=== PATIENT | female | born 1990 | race Caucasian/White ===

== ENCOUNTER 2021-06-23 12:13 | Emergency (ER) | payer OTHER ==
[~2021-06-23] VITALS: Ht 160 cm; Wt 68.9 kg
[2021-06-23] MEDS ORDERED: HYDROXYCHLOROQ200 MG PO (12:23)
[2021-06-23] MEDS ORDERED: SYNTHROID112 MCG PO (12:23)
[2021-06-23] MEDS ORDERED: FOLIC ACID0.8 M1 (12:24)
== END 2021-06-23 15:59 | disposition home or self-care (01) ==
LOC: ER 12:13
DX: O21.0 Mild hyperemesis gravidarum (principal); Z3A.09 9 weeks gestation of pregnancy

== ENCOUNTER 2021-08-26 15:13 | Emergency (ER) | payer OTHER ==
[~2021-08-26] VITALS: Ht 160 cm; Wt 68.0 kg
[~2021-08-26 15:13] MED LIST: FOLIC ACID0.8 M1; HYDROXYCHLOROQ200 MG PO; SYNTHROID112 MCG PO
[2021-08-26] MEDS ORDERED: ZOFRAN8 MG PO (18:51)
[2021-08-26] MEDS ORDERED: CARAFATE1 GM PO (18:51)
[2021-08-26] MEDS ORDERED: PEPCID AC20 MG PO (18:51)
== END 2021-08-26 19:20 | disposition home or self-care (01) ==
LOC: ER 15:13
DX: K29.70 Gastritis, unspecified, without bleeding (principal); Z88.6 Allergy status to analgesic agent

== ENCOUNTER 2021-12-09 04:43 | Inpatient (IN) | payer OTHER ==
[~2021-12-09] VITALS: Ht 160 cm; Wt 1.8 kg
[~2021-12-09 04:43] MED LIST changes: +CARAFATE1 GM PO; +PEPCID AC20 MG PO; +ZOFRAN8 MG PO
[2021-12-09] MEDS ORDERED: SYNTHROID125 MCG PO (07:00)
== END 2021-12-12 18:18 | disposition home or self-care (01) | DRG 785 ==
LOC: LDR 04:43 → OB/GYN 04:43
PROVIDERS: ADMIT Specialist; ATTEND Specialist
PROC: 0UB70ZZ Excision of Bilateral Fallopian Tubes, Open Approach (ICD-10-PCS; 2021-12-09)
PROC: 4A1HXCZ Monitoring of Products of Conception, Cardiac Rate, External Approach (ICD-10-PCS; 2021-12-09)
PROC: 10D00Z1 Extraction of Products of Conception, Low, Open Approach (ICD-10-PCS; principal; 2021-12-09 19:15)
DX: O60.14X2 Preterm labor third trimester with preterm delivery third trimester, fetus 2 (principal); O30.013 Twin pregnancy, monochorionic/monoamniotic, third trimester; Z3A.33 33 weeks gestation of pregnancy; Z37.2 Twins, both liveborn; Z20.822 Contact with and (suspected) exposure to COVID-19; Z30.2 Encounter for sterilization